=== PATIENT | male | born 1945 | race Caucasian/White ===

== ENCOUNTER 2018-09-20 11:08 | Emergency (ER) | payer MEDICARE ==
[~2018-09-20] VITALS: Ht 182.9 cm; Wt 101.7 kg
[2018-09-20] MEDS ORDERED: NEBI20TA2 PO (12:04)
[2018-09-20] MEDS ORDERED: RIVA20TA PO (12:04)
[2018-09-20] MEDS ORDERED: OMEP40CA6 PO (12:04)
[2018-09-20] MEDS ORDERED: COLC1TAB PO (12:04)
[2018-09-20] MEDS ORDERED: DIGO250T PO (12:05)
[2018-09-20 12:37] LABS: BASOPHILS # (AUTO) 0.02 x10^3/uL (0-0.1); BASOPHILS % (AUTO) 0 % (0-1); EOSINOPHILS # (AUTO) 0.05 x10^3/uL (0-0.4); EOSINOPHILS % (AUTO) 1 % (1-7); LYMPHOCYTES # (AUTO) 1.57 x10^3/uL (1-3.4); LYMPHOCYTES % (AUTO) 25 % (22-44); MD NO; MEAN CORPUSCULAR HEMOGLOBIN 34.5 pg (27.5-34.5); MEAN CORPUSCULAR HGB CONC 35.3 g/dL (33.2-36.2); MEAN CORPUSCULAR VOLUME 97.7 fL (81-97); MEAN PLATELET VOLUME 9.7 fL (7.4-10.4); MONOCYTES # (AUTO) 0.54 x10^3/uL (0.2-0.8); MONOCYTES % (AUTO) 9 % (2-9); NEUTROPHILS # (AUTO) 4.14 x10^3/uL (1.8-6.8); NEUTROPHILS % (AUTO) 65 % (42-75); PLATELET COUNT 177 x10^3/uL (130-400); RED BLOOD COUNT 4.84 x10^6/uL (4.38-5.82); RED CELL DISTRIBUTION WIDTH 13.4 % (9.4-14.8)
[2018-09-20 12:47] LABS: ALBUMIN 4.2 g/dL (3.4-5.0); ANION GAP 8 mmol/L (5-15); CALCIUM 9.2 mg/dL (8.5-10.1); CHLORIDE 107 mmol/L (98-107); CREATININE 1.34 mg/dL (0.7-1.3)
[2018-09-20 12:48] LABS: INTERNATIONAL NORMALIZED RATIO 1.08 (0.93-1.1); PROTHROMBIN TIME 11.4 Seconds (9.6-11.5)
[2018-09-20 13:57] LABS: CULTURE INDICATED? YES; MICROSCOPIC INDICATED
[2018-09-20 15:17] VITALS: BP 144/84
== END 2018-09-20 16:08 | disposition home or self-care (01) ==
LOC: ED 15:45
DX: R31.0 Gross hematuria (principal); Z79.01 Long term (current) use of anticoagulants; I48.91 Unspecified atrial fibrillation
CPT/HCPCS: 36415; 76770; 80048; 81001; 82040; 85025; 85610; 85730; 87086; 99284

== ENCOUNTER → 2018-11-01 | Outpatient (CLI) | payer MEDICARE, BC ==
[~2018-11-01] MED LIST: COLC1TAB PO; DIGO250T PO; NEBI20TA2 PO; OMEP40CA6 PO; OMNIPAQUE 350 MG/ML, 150 ML BOTTLE ONE; RIVA20TA PO
== END | disposition home or self-care (01) ==
LOC: RAD 10:26
PROVIDERS: ATTEND Urology
DX: K76.0 Fatty (change of) liver, not elsewhere classified (principal); N28.1 Cyst of kidney, acquired
CPT/HCPCS: 74178; Q9967

== ENCOUNTER → 2021-06-06 | Outpatient (CLI) | payer MEDICARE, BC ==
[~2021-06-06] MED LIST changes: -DIGO250T PO; +DIGO250T3 PO; -OMEP40CA6 PO; +OMEP40CA8 PO; -OMNIPAQUE 350 MG/ML, 150 ML BOTTLE ONE; +REGADENOSON 0.4 MG/5 ML SYRINGE ONE
== END | disposition home or self-care (01) ==
LOC: CFH 07:13
PROVIDERS: ATTEND Internal Medicine Cardiovascular Disease
DX: I08.8 Other rheumatic multiple valve diseases (principal); R06.02 Shortness of breath; I48.91 Unspecified atrial fibrillation
CPT/HCPCS: 78452; 93017; 93306; A9502; J2785